=== PATIENT | female | born 1985 | race Caucasian/White ===

== ENCOUNTER 2018-03-19 22:13 | Emergency (ER) | payer OTHER ==
[~2018-03-19] VITALS: Ht 162.6 cm; Wt 53.1 kg
[~2018-03-19 22:13] MED LIST: KETO10TA2 PO
[2018-03-19] MEDS ORDERED: PREVACID15 MG (22:40)
[2018-03-19] MEDS ORDERED: PRENATAL 19 CH1 EACH (22:40)
== END 2018-03-20 11:37 | disposition home or self-care (01) ==
LOC: ER 22:13
DX: O20.0 Threatened abortion (principal); Z34.01 Encounter for supervision of normal first pregnancy, first trimester

== ENCOUNTER 2018-09-27 11:54 | Inpatient (IN) | payer OTHER ==
[~2018-09-27] VITALS: Ht 162.6 cm; Wt 67.1 kg
[~2018-09-27 11:54] MED LIST changes: +PRENATAL 19 CH1 EACH; +PREVACID15 MG
[2018-10-08] MEDS ORDERED: ZYRTEC10 MG (23:10)
[2018-10-08] MEDS ORDERED: HIERRO PO (23:10)
== END 2018-10-10 11:02 | disposition home or self-care (01) | DRG 805 ==
LOC: LDR 10-08 22:34 → OB/GYN 10-09 02:06
PROVIDERS: ADMIT Specialist
PROC: 3E033VJ Introduction of Other Hormone into Peripheral Vein, Percutaneous Approach (ICD-10-PCS; 2018-10-08)
PROC: 4A1HXCZ Monitoring of Products of Conception, Cardiac Rate, External Approach (ICD-10-PCS; 2018-10-08)
PROC: 10E0XZZ Delivery of Products of Conception, External Approach (ICD-10-PCS; principal; 2018-10-09)
PROC: 0HQ9XZZ Repair Perineum Skin, External Approach (ICD-10-PCS; 2018-10-09)
DX: O70.0 First degree perineal laceration during delivery (principal); O99.42 Diseases of the circulatory system complicating childbirth; Z37.0 Single live birth; Z3A.39 39 weeks gestation of pregnancy

== ENCOUNTER 2019-11-23 06:30 | Day surgery (SDC) | payer OTHER ==
[~2019-11-23 06:30] MED LIST changes: +HIERRO PO; +TAMOXIFEN CITRA10 MG PO; +ZYRTEC10 MG
== END 2019-11-23 20:00 | disposition home or self-care (01) ==
LOC: CIR.AMB 06:30
PROVIDERS: ATTEND Surgery
DX: C50.112 Malignant neoplasm of central portion of left female breast (principal); Z90.12 Acquired absence of left breast and nipple; Z41.1 Encounter for cosmetic surgery

== ENCOUNTER 2020-07-18 06:00 | Day surgery (SDC) | payer OTHER | END 2020-07-18 12:45 | disposition home or self-care (01) | LOC: CIR.AMB 06:00 | PROVIDERS: ATTEND Plastic Surgery | DX: N65.1 Disproportion of reconstructed breast (principal); Z90.13 Acquired absence of bilateral breasts and nipples; Z41.1 Encounter for cosmetic surgery; Z20.822 Contact with and (suspected) exposure to COVID-19 ==

== ENCOUNTER 2021-05-22 12:51 | Emergency (ER) | payer OTHER ==
[~2021-05-22] VITALS: Ht 162.6 cm; Wt 53.1 kg
== END 2021-05-22 15:00 | disposition home or self-care (01) ==
LOC: ER 12:51
DX: T78.40XA Allergy, unspecified, initial encounter (principal); X58.XXXA Exposure to other specified factors, initial encounter; Y92.89 Other specified places as the place of occurrence of the external cause

== ENCOUNTER 2024-07-27 12:02 | Day surgery (SDC) | payer OTHER ==
[2024-07-24 09:41] VITALS: BP 107/73
[~2024-07-27] VITALS: Ht 162.6 cm; Wt 55.8 kg
[2024-07-27] MEDS ORDERED: CEFAZOLIN SODIUM 1,000 MG VIAL IV ONE (16:30)
[2024-07-27] MEDS ORDERED: MORPHINE SULFATE 4 MG/ML VIAL IV ONE ×2 (18:10→18:40)
== END 2024-07-27 21:25 | disposition home or self-care (01) ==
LOC: CIR.AMB 12:02
PROVIDERS: ATTEND Surgery
DX: C76.1 Malignant neoplasm of thorax (principal); C50.212 Malignant neoplasm of upper-inner quadrant of left female breast